=== PATIENT | male | born 1970 | race Caucasian/White ===

== ENCOUNTER 2017-02-16 11:42 | Emergency (ER) | payer BC ==
[~2017-02-16] VITALS: Ht 167.6 cm; Wt 93.0 kg
[2017-02-16 11:46] VITALS: Ht 167.6 cm; Wt 93.0 kg
[2017-02-16] MEDS ORDERED: LIDOCAINE/MYLANTA 40 ML BTL PO STA (12:47)
[2017-02-16] MEDS ORDERED: SOD CHLORIDE 0.9% 1,000 ML IV STA (12:47)
[2017-02-16] MEDS ORDERED: FAMOTIDINE 20 MG TAB PO STA (12:47)
[2017-02-16] MEDS ORDERED: ONDANSETRON 4 MG INJ IV STA (12:47)
[2017-02-16 13:27] LABS: BASOPHILS % 0.4 % (0.0-2.0); EOSINOPHILS # 0.3 10^3/ul (0.0-0.5); EOSINOPHILS % 3.2 % (0.0-7.0); HEMATOCRIT 42.3 % (42.0-52.0); HEMOGLOBIN 15.3 g/dl (14.0-18.0); LYMPHOCYTES # 2.1 10^3/ul (0.8-2.9); LYMPHOCYTES % 19.8 % (15.0-51.0); MEAN CORPUSCULAR HEMOGLOBIN 30.9 pg (29.0-33.0); MEAN CORPUSCULAR HGB CONC 36.2 g/dl (32.0-37.0); MEAN CORPUSCULAR VOLUME 85.5 fl (82.0-101.0); MEAN PLATELET VOLUME 10.5 fl (7.4-10.4); MONOCYTE # 0.9 10^3/ul (0.3-0.9); MONOCYTES % 8.7 % (0.0-11.0); NEUTROPHILS % 67.5 % (39.0-77.0); PLATELET COUNT 279 10^3/UL (140-415); RED BLOOD COUNT 4.95 10^6/ul (4.70-6.10); RED CELL DISTRIBUTION WIDTH 12.8 % (11.5-14.5); WHITE BLOOD COUNT 10.4 10^3/ul (4.8-10.8)
[2017-02-16 13:32] LABS: ADD UMIC NO; UR ASCORBIC ACID NEGATIVE (NEGATIVE); UR BILIRUBIN (Dip) NEGATIVE (NEGATIVE); UR BLOOD (Dip) NEGATIVE (NEGATIVE); UR CLARITY CLEAR (CLEAR); UR COLOR YELLOW (YELLOW); UR GLUCOSE (Dip) NEGATIVE (NEGATIVE); UR KETONES (Dip) NEGATIVE (NEGATIVE); UR LEUKOCYTE ESTERASE (Dip) NEGATIVE Leu/ul (NEGATIVE); UR NITRITE (Dip) NEGATIVE (NEGATIVE); UR SPECIFIC GRAVITY (Dip) 1.014 (1.003-1.030); UR TOTAL PROTEIN (Dip) NEGATIVE (NEGATIVE); UR UROBILINOGEN (Dip) 2+ mg/dL (NEGATIVE)
[2017-02-16 13:50] LABS: ALBUMIN 4.6 g/dl (3.3-4.9); ALBUMIN/GLOBULIN RATIO 1.17; BILIRUBIN,INDIRECT 2.5 mg/dl (0-1.1); BILIRUBIN,TOTAL 2.5 mg/dl (0.2-1.3); CALCIUM 9.5 mg/dl (8.4-10.2); CREATININE 0.93 mg/dl (0.61-1.24); POTASSIUM 3.9 mmol/L (3.5-5.1); TOTAL PROTEIN 8.5 g/dl (6.1-8.1)
--- NOTE | 2017-02-16 14:07 | RADRPT ---
PROCEDURE: CT abdomen and pelvis without intravenous contrast. CLINICAL INDICATION: Abdominal pain with nausea and vomiting. TECHNIQUE: CT of the abdomen/pelvis was performed utilizing axial images with reconstructions in s agittal and coronal planes. The administered radiation dose is CTDI 19.17 mGy, DLP 1274.53 mGy-cm. O ne or more of the following dose reduction techniques were used: Automated exposure control, Adjustm ent of the mA and/or kV according to patient size, or Use of iterative reconstruction technique. COMPARISON: There are no similar studies submitted for comparison. FINDINGS: Lung bases: The lung bases are clear.The heart is normal size without pericardial effusion. CT ABDOMEN: Evaluation of the abdominal viscera is limited without intravenous contrast. Gastrointestinal tract: There is no bowel obstruction.The appendix is normal size without inflammato ry changes.No abnormal colonic wall thickening is identified.There is no pneumoperitoneum. Liver: The liver is normal size. There is hepatic fatty infiltration. There is no intrahepatic ducta l dilatation. Gallbladder: The gallbladder is distended and heterogeneous. There are gallstones noted. There is ap parent gallbladder wall thickening with mild pericholecystic inflammatory changes. Pancreas: The pancreas is grossly unremarkable. Spleen: The spleen is normal in size. Kidneys: The kidneys are normal in size and contour.No renal calculi identified.There is no evidence of hydronephrosis. There is a 1 cm cystic left renal lesion with peripheral calcifications (image 6 8 series 3). Adrenal glands: The bilateral adrenal glands are unremarkable. Retroperitoneum: There is no retroperitoneal adenopathy.The aorta is normal in caliber. CT PELVIS: Pelvic organs: The prostate is normal in size. Bladder: The bladder is under distended with limited evaluation. There is no pelvic free fluid.No pelvic adenopathy is identified. There is a small fat containing le ft inguinal hernia. Osseous structures: No destructive lytic or blastic osseous lesion is identified. There is a 2 cm sc lerotic focus within the right iliac bone which is indeterminate but statistically represents a bone island. IMPRESSION: Evaluation of the abdominal viscera is limited without intravenous contrast. 1. Cholelithiasis with distended heterogeneous gallbladder with probable gallbladder wall thickenin g with mild pericholecystic inflammatory changes. Findings are suspicious for acute cholecystitis wh ich cannot be excluded however evaluation is limited on CT. Ultrasound of the right upper quadrant i s recommended for more definitive diagnosis as clinically warranted. 2. There is a 1 cm cystic left renal lesion with peripheral calcifications. Post contrast imaging as well as follow-up imaging may be performed as clinically warranted. 3. Hepatic fatty infiltration. Correlate with LFTs. Further findings as detailed above. RPTAT: PP .Adelso Olsen MD, Date Time Electronically viewed and signed by .Adelso Olsen MD, on 02/16/2017 14:07 .F/
--- NOTE | 2017-02-16 14:36 | ERD ---
ER Documentation Chief Complaint Date/Time DATE: 02/16/17 TIME: 14:31 Chief Complaint Comlains of abdominal pain x 4 days HPI Patient is a 46 year old male here with who presents to the ED with abdominal pain 5 days. Patient states that the pain came on suddenly last after he had a late dinner of carne asada and beans and had non bilious emesis. He states that the pain went away however on Sunday, 5 days ago he developed pain at night and vomiting. He had 2 days of bilious vomiting however he states that yesterday and today he has not had any vomiting. He states that the pain has radiated from the right upper quadrant to his back to his lower quadrant on the right side. Denies diarrhea but has had soft stools. Has not taken any medicine for his symptoms. Denies recent travel. Patient drinks 1 bottle and a half of wine 4x a week. Denies abdominal symptoms in past or abdominal disease. No hx of gallstones ROS All systems reviewed and are negative except as per history of present illness. Allergies Allergies: Coded Allergies: Penicillins (Verified Allergy, Intermediate, Rash, Hives, 02/16/17) PMhx/Soc Medical and Surgical Hx: pt denies Medical Hx, pt denies Surgical Hx History of Surgery: No Anesthesia Reaction: No Hx Neurological Disorder: No Hx Respiratory Disorders: No Hx Cardiac Disorders: No Hx Psychiatric Problems: No Hx Alcohol Use: Yes (1.5 bottles of wine, 4 x a week) Hx Substance Use: No Hx Tobacco Use: No Smoking Status: Never smoker FmHx Family History: No coronary disease, No diabetes, No other Physical Exam Vitals Vital Signs Date Time Temp Pulse Resp B/P Pulse Ox O2 Delivery O2 Flow Rate FiO2 02/16/17 11:46 100.0 109 20 181/83 98 Physical Exam GENERAL: Well-developed, well-nourished male. Appears in mild distress. NECK: Supple. No lymphadenopathy or thyromegaly. No meningismus. negative kernig. negative brudinski. LUNG: Clear to auscultation bilaterally. No rhonchi, wheezing, rales or coarse breath sounds. HEART: Regular rate and rhythm. No murmurs, rubs or gallops. ABDOMEN: No scars, ecchymosis or rashes noted. Soft, and nondistended. Positive bowel sounds in all four quadrants. No rebound tenderness, no guarding. (-) McBurneys point tenderness. No CVA tenderness. tenderness in ruq and right mid quadrant. BACK: No midline tenderness. Extremities: Equal pulses bilaterally. No peripheral clubbing, cyanosis or edema. No unilateral leg swelling. NEUROLOGIC: Alert and oriented. Moving all four extremities. 5/5 strength in all extremities. Normal speech. Steady gait. SKIN: Normal color. Warm and dry. No rashes or lesions. Capillary refill < 2 seconds Result Diagram: 02/16/17 1314 02/16/17 1314 Results 24 hrs Laboratory Tests Test 02/16/17 13:14 White Blood Count 10.410^3/ul Red Blood Count 4.9510^6/ul Hemoglobin 15.3g/dl Hematocrit 42.3% Mean Corpuscular Volume 85.5fl Mean Corpuscular Hemoglobin 30.9pg Mean Corpuscular Hemoglobin Concent 36.2g/dl Red Cell Distribution Width 12.8% Platelet Count 30417^3/UL Mean Platelet Volume 10.5fl Neutrophils % 67.5% Lymphocytes % 19.8% Monocytes % 8.7% Eosinophils % 3.2% Basophils % 0.4% Nucleated Red Blood Cells % 0.0/100WBC Neutrophils # 7.010^3/ul Lymphocytes # 2.110^3/ul Monocytes # 0.910^3/ul Eosinophils # 0.310^3/ul Basophils # 0.010^3/ul Nucleated Red Blood Cells # 0.010^3/ul Urine Color YELLOW Urine Clarity CLEAR Urine pH 5.0 Urine Specific [place] 1.014 Urine Ketones NEGATIVEmg/dL Urine Nitrite NEGATIVEmg/dL Urine Bilirubin NEGATIVEmg/dL Urine Urobilinogen 2+mg/dL Urine Leukocyte Esterase NEGATIVELeu/ul Urine Hemoglobin NEGATIVEmg/dL Urine Glucose NEGATIVEmg/dL Urine Total Protein NEGATIVEmg/dl Sodium Level 140mmol/L Potassium Level 3.9mmol/L Chloride Level 97mmol/L Carbon Dioxide Level 27mmol/L Anion Gap 20 Blood Urea Nitrogen 17mg/dl Creatinine 0.93mg/dl Glucose Level 115mg/dl Calcium Level 9.5mg/dl Total Bilirubin 2.5mg/dl Direct Bilirubin 0.00mg/dl Indirect Bilirubin 2.5mg/dl Aspartate Amino Transf (AST/SGOT) 46IU/L Alanine Aminotransferase (ALT/SGPT) 65IU/L Alkaline Phosphatase 108IU/L Total Protein 8.5g/dl Albumin 4.6g/dl Globulin 3.90g/dl Albumin/Globulin Ratio 1.17 Lipase 117U/L Current Medications Medications (Trade) Dose Ordered Sig/Andry Route PRN Reason Start Time Stop Time Status Last Admin Dose Admin Sodium Chloride (NS) 1,000 ml @ 1,000 mls/hr Q1H STAT IV 02/16/17 12:47 02/16/17 13:46 DC 02/16/17 13:20 Ondansetron HCl (Zofran Inj) 4 mg ONCE STAT IV 02/16/17 12:47 02/16/17 12:49 DC 02/16/17 13:20 Famotidine (Pepcid) 20 mg ONCE STAT PO 02/16/17 12:47 02/16/17 12:49 DC 02/16/17 13:20 Miscellaneous Medication (Gi Cocktail (2)) 40 ml ONCE STAT PO 02/16/17 12:47 02/16/17 12:49 DC 02/16/17 13:20 Procedures/MDM ER COURSE: I kept the patient and/or family informed of laboratory and diagnostic imaging results throughout the emergency room course. EKG, MONITORS, & DIAGNOSTIC IMAGING: [place] [id number] Radiology Main Line: [phone] DIAGNOSTIC IMAGING REPORT Patient: OK ANDERSON : 1970 Age: 46 Sex: M MR #: [id number] DOS: 02/16/17 1414 Ordering MD: DERIK RAY PA-C Location: E Room/Bed: PROCEDURE: US Abdomen. CLINICAL INDICATION: abdominal pain TECHNIQUE: Multiple real-time images were acquired of the patient's right upper quadrant abdomen and retroperitoneum utilizing a high resolution transducer. COMPARISON: 02/16/17 FINDINGS: The liver demonstrates increased echogenicity. The liver is normal in size and no focal solid lesions are seen. The liver measures 16.6 cm in length. The portal vein is patent with normal direction of flow. No intrahepatic biliary dilatation is seen. Multiple stones are seen within the gallbladder. The gallbladder wall is thickened, measuring 5 mm. There is mild pericholecystic fluid noted. The common bile duct measures 3.6 mm. The visualized portions of the pancreas are unremarkable. The tail of the pancreas is not seen. No free fluid is identified. The right kidney is normal in size, and demonstrate normal echogenicity and cortical thickness. The right kidney measures 11.8 cm in long dimension. There is no evidence of hydronephrosis. There are no kidney stones. RPTAT: AA IMPRESSION: Cholelithiasis with gallbladder wall thickening and pericholecystic fluid may represent acute cholecystitis. This could be confirmed with a HIDA scan if clinically indicated.. Fatty infiltration of the liver. .Paras Kuo MD, Date Time Electronically viewed and signed by .Paras Kuo MD, MD on 02/16/2017 14: 43 .S/ CC: DERIK RAY PA-C [place] [address] Radiology Main Line: [phone] DIAGNOSTIC IMAGING REPORT Patient: [place] ANDERSON : 1970 Age: 46 Sex: M MR #: [id number] DOS: 02/16/17 1247 Ordering MD: DERIK RAY PA-C Location: [facility] Room/Bed: PROCEDURE: CT abdomen and pelvis without intravenous contrast. CLINICAL INDICATION: Abdominal pain with nausea and vomiting. TECHNIQUE: CT of the abdomen/pelvis was performed utilizing axial images with reconstructions in sagittal and coronal planes. The administered radiation dose is CTDI 19.17 mGy, DLP 1274.53 mGy-cm. One or more of the following dose reduction techniques were used: Automated exposure control, Adjustment of the mA and/or kV according to patient size, or Use of iterative reconstruction technique. COMPARISON: There are no similar studies submitted for comparison. FINDINGS: Lung bases: The lung bases are clear.The heart is normal size without pericardial effusion. CT ABDOMEN: Evaluation of the abdominal viscera is limited without intravenous contrast. Gastrointestinal tract: There is no bowel obstruction.The appendix is normal size without inflammatory changes.No abnormal colonic wall thickening is identified.There is no pneumoperitoneum. Liver: The liver is normal size. There is hepatic fatty infiltration. There is no intrahepatic ductal dilatation. Gallbladder: The gallbladder is distended and heterogeneous. There are gallstones noted. There is apparent gallbladder wall thickening with mild pericholecystic inflammatory changes. Pancreas: The pancreas is grossly unremarkable. Spleen: The spleen is normal in size. Kidneys: The kidneys are normal in size and contour.No renal calculi identified.There is no evidence of hydronephrosis. There is a 1 cm cystic left renal lesion with peripheral calcifications (image 68 series 3). Adrenal glands: The bilateral adrenal glands are unremarkable. Retroperitoneum: There is no retroperitoneal adenopathy.The aorta is normal in caliber. CT PELVIS: Pelvic organs: The prostate is normal in size. Bladder: The bladder is under distended with limited evaluation. There is no pelvic free fluid.No pelvic adenopathy is identified. There is a small fat containing left inguinal hernia. Osseous structures: No destructive lytic or blastic osseous lesion is identified. There is a 2 cm sclerotic focus within the right iliac bone which is indeterminate but statistically represents a bone island. IMPRESSION: Evaluation of the abdominal viscera is limited without intravenous contrast. 1. Cholelithiasis with distended heterogeneous gallbladder with probable gallbladder wall thickening with mild pericholecystic inflammatory changes. Findings are suspicious for acute cholecystitis which cannot be excluded however evaluation is limited on CT. Ultrasound of the right upper quadrant is recommended for more definitive diagnosis as clinically warranted. 2. There is a 1 cm cystic left renal lesion with peripheral calcifications. Post contrast imaging as well as follow-up imaging may be performed as clinically warranted. 3. Hepatic fatty infiltration. Correlate with LFTs. Further findings as detailed above. RPTAT: PP .Adelso Olsen MD, MD Date Time Electronically viewed and signed by .Adelso Olsen MD, MD on 02/16/2017 14:07 .F/ CC: DERIK RAY PA-C LAB INTERPRETATION: CBC showed no evidence of systemic infection or severe anemia. CMP showed no evidence of electrolyte abnormalities, severe acidosis, alkalosis, renal failure , or liver disease. Lipase showed no evidence of acute pancreatitis. UA showed no evidence of leukocytes, nitrites or hematuria. MEDICAL DECISION MAKING: This is a 46-year-old male who presents with abdominal pain 5 days. Vital signs were reviewed. Patient is afebrile. Patient is not hypoxic. Patient's ultrasound and CT showed cholecystitis. I consulted with my supervising physician Dr. Johns who reviewed all imaging studies and laboratory studies and will be admitting the patient. Patient was explained all results. All questions were answered. Patient is stable at transfer to ED 1. Departure Diagnosis: Primary Impression: Cholecystitis Condition: Stable DERIK RAY PA-C Feb 16, 2017 14:36
--- NOTE | 2017-02-16 14:43 | RADRPT ---
PROCEDURE: US Abdomen. CLINICAL INDICATION: abdominal pain TECHNIQUE: Multiple real-time images were acquired of the patient's right upper quadrant abdomen a nd retroperitoneum utilizing a high resolution transducer. COMPARISON: 02/16/17 FINDINGS: The liver demonstrates increased echogenicity. The liver is normal in size and no focal solid lesio ns are seen. The liver measures 16.6 cm in length. The portal vein is patent with normal direction o f flow. No intrahepatic biliary dilatation is seen. Multiple stones are seen within the gallbladder. The gallbladder wall is thickened, measuring 5 mm. There is mild pericholecystic fluid noted. The common bile duct measures 3.6 mm. The visualized portions of the pancreas are unremarkable. The tail of the pancreas is not seen. No free fluid is identified. The right kidney is normal in size, and demonstrate normal echogenicity and cortical thickness. The right kidney measures 11.8 cm in long dimension. There is no evidence of hydronephrosis. There are no kidney stones. RPTAT: AA IMPRESSION: Cholelithiasis with gallbladder wall thickening and pericholecystic fluid may represent acute cholec ystitis. This could be confirmed with a HIDA scan if clinically indicated.. Fatty infiltration of the liver. .Paras Kuo MD, MD Date Time Electronically viewed and signed by .Paras Kuo MD, on 02/16/2017 14:43 .S/
[2017-02-16] MEDS ORDERED: SOD CHLORIDE 0.9% 1,000 ML IV ONE (16:00)
[2017-02-16 18:04] VITALS: BP 131/78; PULSE 85; RESP 20; TEMP 98.1
--- NOTE | 2017-02-16 18:21 | EN ---
Date/Time of Note Date/Time of Note DATE: 02/16/17 TIME: 18:20 ER Progress Note Patient with some signs of acute cholecystitis without ductal dilation. He was going to be admitted for this and I briefly spoke with the surgeon avionics test technician about him however he is capitated to a different hospital. He is definitely stable for transfer and for insurance reasons he is capitated. Will be transferred. Currently he is stable and his pain is well controlled. VELIA SIMEON DO Feb 16, 2017 18:21
== END 2017-02-16 20:05 | disposition short-term general hospital (02) ==
LOC: FTE 11:42
DX: K81.9 Cholecystitis, unspecified (principal)
CPT/HCPCS: 36415; 74176; 76705; 80053; 81003; 83690; 85025; 96374; 96375; 99285; J2405; J7030

== ENCOUNTER 2017-10-03 16:49 | Inpatient (IN) | END 2017-10-05 12:35 | disposition home or self-care (01) | DRG 392 ==

== ENCOUNTER 2018-02-16 08:36 | Emergency (ER) | END 2018-02-16 11:05 | disposition home or self-care (01) ==